=== PATIENT | female | born 1985 | race Two or more races ===

== ENCOUNTER 2021-10-04 15:34 | Outpatient (CLI) | payer OTHER | END 2021-10-04 16:40 | disposition home or self-care (01) | LOC: PRENATAL 15:34 | PROVIDERS: ATTEND Obstetrics & Gynecology Maternal & Fetal Medicine | DX: O35.0XX1 Maternal care for (suspected) central nervous system malformation in fetus, fetus 1 (principal); O35.3XX1 Maternal care for (suspected) damage to fetus from viral disease in mother, fetus 1; O98.512 Other viral diseases complicating pregnancy, second trimester; O09.512 Supervision of elderly primigravida, second trimester; O28.1 Abnormal biochemical finding on antenatal screening of mother; Z36.89 Encounter for other specified antenatal screening; Z3A.24 24 weeks gestation of pregnancy ==

== ENCOUNTER 2025-07-28 12:31 | Emergency (ER) | payer OTHER ==
[~2025-07-28] VITALS: Ht 160 cm; Wt 64.9 kg
[2025-07-28] MEDS ORDERED: FAMOTIDINE/PF 20 MG/2 ML VIAL IV ONE (15:30)
[2025-07-28] MEDS ORDERED: ORPHENADRINE CITRATE 30 MG/ML AMPUL IM ONE (15:30)
[2025-07-28] MEDS ORDERED: ONDANSETRON HCL 2 MG/ML VIAL IV ONE (15:30)
[2025-07-28] MEDS ORDERED: FAMOTIDINE/PF 20 MG/2 ML VIAL ONE (15:35)
[2025-07-28] MEDS ORDERED: ORPHENADRINE CITRATE 30 MG/ML AMPUL ONE (15:35)
[2025-07-28] MEDS ORDERED: ONDANSETRON HCL 2 MG/ML VIAL ONE (15:35)
[2025-07-28] MEDS ORDERED: ACETAMINOPHEN 500 MG GEL..CAP PO ONE ×2 (16:06→20:59)
[2025-07-28 16:07] LABS: BASO % 0.9 % (0.1-1.2); EOS # 0.29 (0.04-0.54); EOS % 3.4 % (0.7-7.0); LYMPH # 3.07 (1.18-3.74); LYMPH % 36.2 % (19.3-53.1); MEAN PLATELET VOLUME 9.40 fl (9.4-12.4); MONO # 0.50 (0.24-0.82); MONO % 5.9 % (4.7-12.5); NEUT # 4.54 (1.56-6.13); NEUT % 53.5 % (34.0-71.1); RED CELL DISTRIBUTION WIDTH 15.4 % (11.6-14.4)
[2025-07-28 16:36] LABS: BUN CREA RATIO 18.0 (7.0-25.0); CREATININE SERUM 0.72 mg/dL (0.55-1.02); GFR 89.71; GLUCOSE FASTING 108.0 mg/dL (65-100); OSMOLALITY SERUM 284.0 MOSM/KG (275-295)
[2025-07-28 19:43] LABS: URINE APPEARANCE Clear; URINE BILIRRUBIN Negative (NEGATIVE); URINE BLOOD Large; URINE COLOR Yellow; URINE GLUCOSE Negative (NEGATIVE); URINE KETONE Negative (NEGATIVE); URINE LEUKOCYTE Trace; URINE NITRATE Negative; URINE PROTEIN Negative (NEGATIVE); URINE UROBILINOGEN 0.2 E.U./dl
[2025-07-28 19:44] LABS: URINE BACTERIA 17.9 uL (0.0-1933); URINE EPITHELIAL CELLS 3.0 uL (0.0-38.8); URINE RBC 1697.9 uL (0.0-20.8); URINE WBC 10.1 uL (0.0-23.2)
[2025-07-28 19:45] LABS: URINE CAST 0.00 uL (0.0-1.40)
== END 2025-07-28 21:58 | disposition home or self-care (01) ==
LOC: ER 12:31
PROVIDERS: Student in an Organized Health Care Education/Training Program
DX: O20.8 Other hemorrhage in early pregnancy (principal); Z3A.01 Less than 8 weeks gestation of pregnancy; Z88.0 Allergy status to penicillin; Z88.1 Allergy status to other antibiotic agents; Z88.6 Allergy status to analgesic agent